=== PATIENT | male | born 1970 ===

== ENCOUNTER 2018-12-12 16:09 | Inpatient (IN) ==
[2018-12-12] MEDS ORDERED: DOCUSATE SODIUM 100 MG CAPSULE PO PRN (20:18)
[2018-12-12] MEDS ORDERED: GLUCAGON 1 MG VIAL IM PRN (20:18)
[2018-12-12] MEDS ORDERED: DEXTROSE 50% 25 GM/50 ML SYRINGE IV PRN (20:18)
[2018-12-12] MEDS ORDERED: MORPHINE 4 MG/1 ML VIAL IV PRN (20:18)
[2018-12-12] MEDS ORDERED: ACETAMINOPHEN 325 MG TABLET PO PRN (20:18)
[2018-12-12] MEDS ORDERED: guaiFENesin/DM ER 600-30 MG TABLET PO PRN (20:18)
[2018-12-12] MEDS ORDERED: ONDANSETRON 4 MG/2 ML VIAL IV PRN (20:18)
[2018-12-12] MEDS ORDERED: ZALEPLON 5 MG CAPSULE PO PRN (20:18)
[2018-12-12 20:44] LABS: Basophils % 0.3 % (0.0-0.8); Eosinophils % 0.3 % (0.00-10.9); Hematocrit 37.4 VOL% (42.0-52.0); Hemoglobin 12.4 GM/DL (14.0-18.0); Immature Granulocytes % 0.4 %; Immature Granulocytes Absolute 0.04 #; Lymphocytes # 1.3 10*3/uL (1.4-4.0); Lymphocytes % 13.7 % (21.2-54.2); Mean Corpuscular HGB Conc 33.2 GM/DL (32-36); Mean Corpuscular Hemoglobin 27 PG (27-34); Mean Corpuscular Volume 82.4 FL (87-102); Mean Platelet Volume 10.4 FL (9.6-12.0); Monocytes # 0.7 10*3/uL (0.11-0.8); Monocytes % 7.3 % (1.7-12.7); Neutrophils # 7.2 10*3/uL (1.4-7.4); Platelet Count 211 T/CUMM (130-400); Red Blood Count 4.54 MC/CUMM (3.8-5.5); Red Cell Distribution Width 13.7 % (9.3-17.3); White Blood Count 9.2 T/CUMM (4-12)
[2018-12-12 21:11] LABS: Albumin 2.7 G/DL (3.4-5.0); Bilirubin,Total 0.5 MG/DL (0.2-1.0); Calcium 7.5 MG/DL (8.5-10.1); Osmolality,Calculated 273.5 MOS/KG (273-304); Potassium 3.6 MMOL/L (3.5-5.1); Total Protein 7.2 G/DL (6.4-8.3)
[2018-12-12 21:13] LABS: Risk Ratio 2.29; VLDL CHOLESTEROL 20.8 MG/DL
[2018-12-12 21:17] LABS: Free T4 (Free Thyroxine) 0.91 NG/DL (0.76-1.46); Thyroid Stimulating Hormone 2.13 uIU/ml (0.358-3.74)
[2018-12-12 21:24] LABS: Troponin I < 0.015 NG/ML (0.00-0.045)
[2018-12-12] MEDS: DICLOFENAC 1% GEL 100 GM TUBE TOP SCH (21:51)
[2018-12-12] MEDS: SODIUM CHLORIDE 0.45% 1,000 ML IV SCH (21:51)
[2018-12-12] MEDS: LUBIPROSTONE 24 MCG CAPSULE PO SCH (21:52)
[2018-12-12] MEDS: ATORVASTATIN 40 MG TABLET PO SCH (21:52)
[2018-12-12] MEDS: ENOXAPARIN 40 MG/0.4 ML SYRINGE SUBCUT SCH (21:52)
[2018-12-12] MEDS: INSULIN REGULAR 100 UNIT/ML SUBCUT SCH (21:54)
[2018-12-12] MEDS: INSULIN GLARGINE 100 UNIT/ML SUBCUT SCH (21:55)
[2018-12-13 00:15] LABS: Apearance,Urine CLEAR (Clear); Bilirubin,Urine Negative (Negative); Blood, Urine Negative (Negative); Glucose,Urine (UA) Negative (Negative); Hyaline Casts,Urine 3 /LPF (0-3); Ketones,Urine Negative (Negative); Mucus,Urine Occasional /LPF (Occasional); Nitrite,Urine Negative (Negative); Protein,Urine Negative; Urine Color Yellow (Yellow); Urine Specific Gravity 1.006 (1.001-1.035); Urine Urobilinogen < 2.0 EU/DL (0.2-1.0)
[2018-12-13 04:55] LABS: Basophils % 0.3 % (0.0-0.8); Eosinophils # 0.1 10*3/uL (0.0-0.87); Eosinophils % 1.2 % (0.00-10.9); Hemoglobin 11.5 GM/DL (14.0-18.0); Immature Granulocytes % 0.3 %; Immature Granulocytes Absolute 0.02 #; Lymphocytes # 2.2 10*3/uL (1.4-4.0); Lymphocytes % 30.1 % (21.2-54.2); Mean Corpuscular HGB Conc 32.9 GM/DL (32-36); Mean Corpuscular Hemoglobin 27 PG (27-34); Mean Corpuscular Volume 83.3 FL (87-102); Mean Platelet Volume 11.1 FL (9.6-12.0); Monocytes # 0.8 10*3/uL (0.11-0.8); Monocytes % 10.8 % (1.7-12.7); Neutrophils # 4.2 10*3/uL (1.4-7.4); Neutrophils % 57.3 % (38.7-73.9); Platelet Count 210 T/CUMM (130-400); Red Cell Distribution Width 13.8 % (9.3-17.3); White Blood Count 7.3 T/CUMM (4-12)
[2018-12-13 05:23] LABS: Calcium 7.4 MG/DL (8.5-10.1); Potassium 3.7 MMOL/L (3.5-5.1)
[2018-12-13 05:37] LABS: Troponin I < 0.015 NG/ML (0.00-0.045)
[2018-12-13] MEDS: SODIUM CHLORIDE 0.45% 1,000 ML IV SCH ×2 (05:40→16:50)
[2018-12-13] MEDS ORDERED: INSULIN ASPART PROTAMINE/ASPART 70/30 100 UNIT/ML SUBCUT SCH (08:00)
[2018-12-13] MEDS: INSULIN REGULAR 100 UNIT/ML SUBCUT SCH ×4 (08:21→22:49)
[2018-12-13] MEDS: DICLOFENAC 1% GEL 100 GM TUBE TOP SCH ×4 (08:30→22:49)
[2018-12-13] MEDS: LUBIPROSTONE 24 MCG CAPSULE PO SCH ×3 (09:34→16:51)
[2018-12-13] MEDS: INSULIN GLARGINE 100 UNIT/ML SUBCUT SCH ×2 (11:58→22:49)
[2018-12-13 13:23] LABS: Troponin I < 0.015 NG/ML (0.00-0.045)
[2018-12-13] MEDS: ASPIRIN 325 MG TABLET PO SCH (14:03)
[2018-12-13] MEDS: METOPROLOL SUCCINATE XL 25 MG TABLET PO SCH (14:04)
[2018-12-13] MEDS: PANTOPRAZOLE 40 MG TABLET PO SCH (14:04)
[2018-12-13] MEDS: TAMSULOSIN 0.4 MG CAPSULE PO SCH (14:04)
[2018-12-13] MEDS: ENOXAPARIN 40 MG/0.4 ML SYRINGE SUBCUT SCH (22:49)
[2018-12-13] MEDS: ATORVASTATIN 40 MG TABLET PO SCH (22:49)
[2018-12-14] MEDS: INSULIN REGULAR 100 UNIT/ML SUBCUT SCH ×2 (09:07→13:01)
[2018-12-14] MEDS: TAMSULOSIN 0.4 MG CAPSULE PO SCH (11:55)
[2018-12-14] MEDS: PANTOPRAZOLE 40 MG TABLET PO SCH (11:55)
[2018-12-14] MEDS: LUBIPROSTONE 24 MCG CAPSULE PO SCH (11:55)
[2018-12-14] MEDS: INSULIN GLARGINE 100 UNIT/ML SUBCUT SCH (11:55)
[2018-12-14] MEDS: METOPROLOL SUCCINATE XL 25 MG TABLET PO SCH (11:55)
[2018-12-14] MEDS: DICLOFENAC 1% GEL 100 GM TUBE TOP SCH ×2 (11:55→13:02)
[2018-12-14] MEDS: ASPIRIN 325 MG TABLET PO SCH (11:55)
[2018-12-14 12:44] VITALS: BP 161/94
== END 2018-12-14 16:38 | disposition home or self-care (01) | DRG 313 ==
LOC: N.TELES → SUATTDRO 18:02 → OBSVTOIN 18:02
PROVIDERS: ADMIT Internal Medicine; ATTEND Internal Medicine